=== PATIENT | male | born 1950 | race Caucasian/White ===

== ENCOUNTER 2024-05-29 09:51 | Outpatient (REF) | payer MEDICARE, SELFPAY | END 2024-05-29 09:52 | disposition home or self-care (01) | LOC: HO.BBR 09:51 | PROVIDERS: PCP Nurse Practitioner Adult Health; Visit Provider Internal Medicine Medical Oncology | DX: E83.110 Hereditary hemochromatosis (principal) | CPT/HCPCS: 85018 ==

== ENCOUNTER 2024-06-04 13:45 | Outpatient (REF) | payer MEDICARE, SELFPAY | END 2024-06-04 13:46 | disposition home or self-care (01) | LOC: HO.BBR 13:45 | PROVIDERS: PCP Nurse Practitioner Adult Health; Visit Provider Internal Medicine Medical Oncology | DX: E83.110 Hereditary hemochromatosis (principal) | CPT/HCPCS: 85018 ==